=== PATIENT | female | born 1990 | race African-American/Black ===

== ENCOUNTER 2017-01-27 17:24 | Emergency (ER) | payer OTHER ==
[~2017-01-27] VITALS: Ht 152.4 cm; Wt 81.6 kg
[~2017-01-27 17:24] MED LIST: FIORICET 50-301 EACH PO; REGLAN10 M1 PO
[2017-01-27 18:00] LABS: ABSOLUTE BASOPHIL COUNT 0 /CUMM (0.0-0.2); ABSOLUTE EOSINOPHIL COUNT 0.2 /CUMM (0.0-0.7); ABSOLUTE GRANULOCYTE CT 5.1 /CUMM (1.4-6.5); ABSOLUTE LYMPH COUNT 2.1 /CUMM (1.2-3.4); ABSOLUTE MONOCYTE COUNT 0.5 /CUMM (0.10-0.60); BASOPHIL % 0.2 % (0.0-2.0); EOSINOPHIL % 2.2 % (0-5); HEMATOCRIT 35.5 % (37-47); MEAN CORPUSCULAR HGB 21.6 PG (27.0-31.0); MEAN CORPUSCULAR HGB CONC 30.9 G/DL (33.0-37.0); MEAN CORPUSCULAR VOLUME 69.8 FL (81.0-99.0); MEAN PLATELET VOLUME 8.6 FL (7.4-10.4); PLATELET COUNT 331 /CUMM (130-400); RBC DISTRIBUTION WIDTH 15.9 % (11.5-14.5); RED BLOOD CELL CT 5.09 /CUMM (4.20-5.40); WHITE BLOOD CELL COUNT 7.8 /CUMM (4.8-10.8)
--- NOTE | 2017-01-27 19:00 | ED GI/GU/ABDOMINAL COMPLAINT ---
History of Present Illness General Chief Complaint: Abdominal Pain/Flank Pain Stated Complaint: ABD PAIN, ? Source: patient, old records Exam Limitations: no limitations Vital Signs & Intake/Output Vital Signs & Intake/Output Vital Signs Date Time Temp Pulse Resp B/P B/P Pulse O2 O2 Flow FiO2 Mean Ox Delivery Rate 01/27 2100 70 20 118/74 98 Room Air 01/27 1920 98.0 78 20 126/68 06/ 1735 98.6 76 18 140/84 98 Room Air ED Intake and Output 01/28 0000 01/27 1200 Intake Total 1000 Output Total Balance 1000 Intake, IV 1000 Patient 180 lb Weight Weight Reported by Patient Measurement Method Allergies Uncoded Allergies: TOMATOES (Mild, RASH 08/16/13) Reconcile Medications Butalb/Acetaminophen/Caffeine (Fioricet 50-300-40 MG Capsule) 1 EACH CAPSULE 1 -2 TAB PO Q6H PRN HEADACHE Metoclopramide HCl (Reglan) 10 MG TABLET 1 TAB PO Q6-8 PRN nausea/headache Oxycodone HCl/Acetaminophen (Percocet 5-325 MG Tablet) 5 MG-325 MG TABLET 1-2 TAB PO Q6P PRN PAIN Triage Note: 26 YO FEMLAE TO TRIAGE C/O LOWER ABD PRESSURE AND PRESSURE IN BOTTOCKS AND LOW BACK. STATES LMP WAS 2 WEEKS AGO. STATES SHE WENT TO THE BATHROOM THIS AM AND IT LOOKED LIKE A "MUCOUS PLUG" COMING OUT. STATES SHE HAS 2 KIDS "SO I KNOW WHAT IT LOOKS LIKE" STATES PRESSURE IS CONSTANT. DENIES NVD. DENIES URIANRY S/S. Triage Nurses Notes Reviewed? yes ? N Is pt currently ? No HPI: Patient presents to the emergency room with pelvic pressure sensation since yesterday. The pressure is constant. There is no radiation. There are no aggravating or mitigating factors. There is no dysuria or hematuria. There is no nausea or vomiting. She rates the pressure at 5 out of 10. Past History Travel History Traveled to [place] past 21 day No Medical History Any Pertinent Medical History? see below for history Neurological: NONE EENT: NONE Cardiovascular: hypertension Respiratory: NONE Gastrointestinal: NONE Hepatic: NONE Renal: NONE Musculoskeletal: NONE Psychiatric: NONE Endocrine: NONE Blood Disorders: NONE Cancer(s): NONE RETAIL EVENT ASSISTANT/Reproductive: OVARIAN CYSTS Tetanus Vaccine: 10/17/11 Surgical History Surgical History: OVARIAN CYST SURGERY Psychosocial History What is your primary language Turkish Tobacco Use: Current Daily Use Daily Tobacco Use Amount/Type: => 5 Cigarettes daily ETOH Use: denies use Illicit Drug Use: denies illicit drug use Family History Hx Contributory? No Review of Systems Review of Systems Constitutional: Reports: no symptoms. EENTM: Reports: no symptoms. Respiratory: Reports: no symptoms. Cardiovascular: Reports: no symptoms. GI: Reports: see HPI. Genitourinary: Reports: no symptoms. Musculoskeletal: Reports: no symptoms. Skin: Reports: no symptoms. Neurological/Psychological: Reports: no symptoms. Hematologic/Endocrine: Reports: no symptoms. Immunologic/Allergic: Reports: no symptoms. All Other Systems: Reviewed and Negative Physical Exam Physical Exam General Appearance: well developed/nourished, alert, awake, anxious, mild distress Head: atraumatic, normal appearance Eyes: Bilateral: PERRL, EOMI. Ears, Nose, Throat, Mouth: hearing grossly normal, moist mucous membrane Neck: normal inspection, supple, full range of motion Respiratory: normal breath sounds, chest non-tender, no respiratory distress, lungs clear Cardiovascular: regular rate/rhythm, normal peripheral pulses Gastrointestinal: normal bowel sounds, soft, non-tender, no organomegaly Back: normal inspection, normal range of motion Extremities: normal range of motion Neurologic/Psych: no motor/sensory deficits, awake, alert, oriented x 3, normal mood/affect Skin: normal color, warm/dry Core Measures ACS in differential dx? No Severe Sepsis Present: No Septic Shock Present: No Progress Differential Diagnosis: appendicitis, ectopic , endometritis, ischemic bowel, inflamm bowel dis, intrauterine , kidney stone, ovarian cyst, ovarian torsion, pancreatitis, PID/cervicitis, threatened AB, UTI/pyelo Plan of Care: Orders Procedure Date/time Status HUMAN BETA HCG SCREEN 01/27 1745 Complete URINE 01/27 1737 Complete URINALYSIS 01/27 1737 Complete COMPREHENSIVE METABOLIC PANEL 01/27 1737 Complete CBC WITHOUT DIFFERENTIAL 01/27 1737 Complete Laboratory Tests 01/27/171744: Anion Gap 10, Estimated GFR > 60, BUN/Creatinine Ratio 13.8, Glucose 100 H, Calcium 8.9, Total Bilirubin 0.3, AST 19, ALT 30, Alkaline Phosphatase 50, Total Protein 7.2, Albumin 4.2, Globulin 3.0, Albumin/Globulin Ratio 1.4, Total Beta HCG NEGATIVE, CBC w Diff NO MAN DIFF REQ, RBC 5.09, MCV 69.8 L, MCH 21.6 L, RDW 15.9 H, MPV 8.6, Gran % 65.0, Lymphocytes % 26.7, Monocytes % 5.9, Eosinophils % 2.2, Basophils % 0.2, Absolute Granulocytes 5.1, Absolute Lymphocytes 2.1, Absolute Monocytes 0.5, Absolute Eosinophils 0.2, Absolute Basophils 0, PUBS MCHC 30.9 L 01/27/17 1743: Urine Color YEL, Urine Clarity CLEAR, Urine pH 6.5, Ur Specific Sunol 1.020, Urine Protein TRACE H, Urine Ketones TRACE H, Urine Nitrite NEG, Urine Bilirubin NEG, Urine Urobilinogen 1.0, Ur Leukocyte Esterase NEG, Ur Microscopic SEDIMENT EXAMINED, Urine RBC 1-3, Urine WBC RARE, Ur Epithelial Cells MOD H, Urine Bacteria MOD H, Urine Mucus MANY H, Urine Hemoglobin TRACE-INTACT, Urine Glucose NEG, Urine Test NEGATIVE 01/27/17 173: Total Beta HCG Cancelled Diagnostic Imaging: Viewed by Me: Ultrasound. Discussed w/RAD: Ultrasound. Radiology Impression: PATIENT: CLARA MORALEZ PRESENT AGE: 26 PATIENT ACCOUNT NO: [id number] : 90 LOCATION: [facility] ORDERING PHYSICIAN: KACY DELEON MD SERVICE DATE: 01/27/17 EXAM TYPE: US - US-TRANSVAGINAL EXAMINATION: ULTRASOUND PELVIS COMPLETE CLINICAL INFORMATION: Left adnexal and suprapubic pain. Evaluate for ovarian torsion. COMPARISON: None. TECHNIQUE: Real-time sonographic imaging of the uterus and bilateral adnexa via transabdominal and transvaginal approach. FINDINGS: The uterus is anteverted and measures 9.0 x 4.2 x 4.6 cm in sagittal, AP and transverse dimensions respectively, corresponding to a volume of 92.1 mL. The cervical length is 2.9 cm. The endometrial stripe measures 0.2 cm in thickness. There is a minimal amount of fluid within the endometrial canal. The bilateral ovaries appear unremarkable. The right ovary measures 3.5 x 2.0 x 2.5 cm, corresponding to a volume of 9.5 mL. The left ovary measures 2.8 x 2.4 x 2.6 cm, corresponding to a volume of 9.1 mL. Flow is demonstrated within the bilateral ovaries. No significant free pelvic fluid. IMPRESSION: No sonographic findings indicative of ovarian torsion. Flow was demonstrated within the bilateral ovaries. Minimal fluid is identified within the endometrial canal. DICTATED BY: VIKKI VICTOR MD DATE/TIME DICTATED:01/27/172011 SUMO WRESTLER:YUE DATE/TIME TRANSCRIBED:01/27/172011 CONFIDENTIAL, DO NOT COPY WITHOUT APPROPRIATE AUTHORIZATION. <Electronically signed in Other Vendor System> SIGNED BY: VIKKI VICTOR MD 01/27/172017, PATIENT: CLARA MORALEZ PRESENT AGE: 26 PATIENT ACCOUNT NO: [id number] : 90 LOCATION: [facility] ORDERING PHYSICIAN: KACY DELEON MD SERVICE DATE: -2022 EXAM TYPE: CAT - CT ABD & PELVIS W/O IV CONTRAS EXAMINATION: CT ABDOMEN AND PELVIS WITHOUT CONTRAST CLINICAL INFORMATION: Back pain. Pelvic pain. Kidney stone. COMPARISON: None. TECHNIQUE: Multidetector volumetric imaging was performed from the lung bases through the pubic symphysis. Sagittal and coronal reformatted images were obtained on the technologist workstation. Total exam dose-length product 489 mGy-cm FINDINGS: The lack of intravenous contrast limits evaluation of the solid visceral organs including the liver, spleen, pancreas, and kidneys. LUNG BASES: The visualized lung bases are unremarkable. LIVER, GALLBLADDER, AND BILIARY TREE: Limited non-contrast evaluation is normal. No gross focal hepatic lesion. Normal liver size and contour. No gross biliary ductal dilation. The gallbladder is unremarkable with no evidence of radiopaque gallstones, gallbladder wall thickening, or obvious pericholecystic inflammatory changes. PANCREAS: Limited non-contrast evaluation is normal. No brielle- pancreatic fluid. SPLEEN: Limited non-contrast evaluation is normal. ADRENAL GLANDS: Normal; no adrenal mass. KIDNEYS AND URETERS: Limited non-contrast evaluation is normal. No hydronephrosis, hydroureter, or calculi seen. No perinephric stranding. There is a right pelvic phlebolith. GASTROINTESTINAL TRACT: Small bowel and colon are non-dilated. No bowel wall thickening. No pericolonic inflammatory changes to suggest colitis or diverticulitis. Normal appendix. ABDOMINAL WALL: Tiny fat-containing umbilical hernia. LYMPH NODES: No pathologically enlarged lymph nodes in the abdomen or pelvis. VASCULAR: Normal caliber abdominal aorta. BLADDER: The urinary bladder is only mildly distended with circumferential wall thickening likely due to underdistention. PELVIC VISCERA: Normal CT appearance of the uterus. No adnexal mass seen. OSSEOUS STRUCTURES: No acute or suspicious osseous abnormalities. IMPRESSION: No radiopaque urolithiasis. No evidence of obstructive uropathy. No CT findings to explain the patient's symptoms. DICTATED BY: HARPER BETANCUR MD DATE/TIME DICTATED:01/27/172058 SUMO WRESTLER:YUE DATE/TIME TRANSCRIBED:2058 CONFIDENTIAL, DO NOT COPY WITHOUT APPROPRIATE AUTHORIZATION. < Electronically signed in Other Vendor System> SIGNED BY: HARPER BETANCUR MD 01/27/172105 Initial ED EKG: none Departure Departure Disposition: HOME OR SELF CARE Condition: Stable Clinical Impression Primary Impression: Pelvic pain Referrals: YURY LEVY (PCP/Family) Additional Instructions: FOLLOW UP WITH YOUR GYNOCOLOGIST RETURN FOR ANY CONCERNS Departure Forms: Customer Survey General Discharge Information Prescriptions: Current Visit Scripts Oxycodone HCl/Acetaminophen (Percocet 5-325 MG Tablet) 1-2 TAB PO Q6P PRN PAIN #20 TAB
--- NOTE | 2017-01-27 20:18 | ULTRASOUND REPORT ---
EXAMINATION: ULTRASOUND PELVIS COMPLETE CLINICAL INFORMATION: Left adnexal and suprapubic pain. Evaluate for ovarian torsion. COMPARISON: None. TECHNIQUE: Real-time sonographic imaging of the uterus and bilateral adnexa via transabdominal and transvaginal approach. FINDINGS: The uterus is anteverted and measures 9.0 x 4.2 x 4.6 cm in sagittal, AP and transverse dimensions respectively, corresponding to a volume of 92.1 mL. The cervical length is 2.9 cm. The endometrial stripe measures 0.2 cm in thickness. There is a minimal amount of fluid within the endometrial canal. The bilateral ovaries appear unremarkable. The right ovary measures 3.5 x 2.0 x 2.5 cm, corresponding to a volume of 9.5 mL. The left ovary measures 2.8 x 2.4 x 2.6 cm, corresponding to a volume of 9.1 mL. Flow is demonstrated within the bilateral ovaries. No significant free pelvic fluid. IMPRESSION: No sonographic findings indicative of ovarian torsion. Flow was demonstrated within the bilateral ovaries. Minimal fluid is identified within the endometrial canal.
[2017-01-27 21:00] VITALS: BP 118/74
--- NOTE | 2017-01-27 21:06 | CT SCAN REPORT ---
EXAMINATION: CT ABDOMEN AND PELVIS WITHOUT CONTRAST CLINICAL INFORMATION: Back pain. Pelvic pain. Kidney stone. COMPARISON: None. TECHNIQUE: Multidetector volumetric imaging was performed from the lung bases through the pubic symphysis. Sagittal and coronal reformatted images were obtained on the technologist workstation. Total exam dose-length product 489 mGy-cm FINDINGS: The lack of intravenous contrast limits evaluation of the solid visceral organs including the liver, spleen, pancreas, and kidneys. LUNG BASES: The visualized lung bases are unremarkable. LIVER, GALLBLADDER, AND BILIARY TREE: Limited non-contrast evaluation is normal. No gross focal hepatic lesion. Normal liver size and contour. No gross biliary ductal dilation. The gallbladder is unremarkable with no evidence of radiopaque gallstones, gallbladder wall thickening, or obvious pericholecystic inflammatory changes. PANCREAS: Limited non-contrast evaluation is normal. No brielle-pancreatic fluid. SPLEEN: Limited non-contrast evaluation is normal. ADRENAL GLANDS: Normal; no adrenal mass. KIDNEYS AND URETERS: Limited non-contrast evaluation is normal. No hydronephrosis, hydroureter, or calculi seen. No perinephric stranding. There is a right pelvic phlebolith. GASTROINTESTINAL TRACT: Small bowel and colon are non-dilated. No bowel wall thickening. No pericolonic inflammatory changes to suggest colitis or diverticulitis. Normal appendix. ABDOMINAL WALL: Tiny fat-containing umbilical hernia. LYMPH NODES: No pathologically enlarged lymph nodes in the abdomen or pelvis. VASCULAR: Normal caliber abdominal aorta. BLADDER: The urinary bladder is only mildly distended with circumferential wall thickening likely due to underdistention. PELVIC VISCERA: Normal CT appearance of the uterus. No adnexal mass seen. OSSEOUS STRUCTURES: No acute or suspicious osseous abnormalities. IMPRESSION: No radiopaque urolithiasis. No evidence of obstructive uropathy. No CT findings to explain the patient's symptoms.
[2017-01-27] MEDS ORDERED: PERCOCET 5-3251 EACH PO (21:24)
== END 2017-01-27 21:36 ==
LOC: ERH 17:24
PROVIDERS: Emergency Medicine
DX: R10.2 Pelvic and perineal pain (principal)
CPT/HCPCS: 74176; 81001; 81025; 96374; 96375; J1885; J2405

== ENCOUNTER 2018-02-24 14:18 | Emergency (ER) | payer OTHER ==
[~2018-02-24] VITALS: Ht 154.9 cm; Wt 81.6 kg
[~2018-02-24 14:18] MED LIST changes: +CHERATUSSIN AC118 M1 PO; +DOXYCYCLINE HY100 M4 PO; +PERCOCET 5-3251 EACH PO; +ZOFRAN ODT4 M1 SL
[2018-02-24 14:22] VITALS: BP 147/69
[2018-02-24] MEDS ORDERED: TRIAMCINOLONE A15 G2 TOP (15:27)
[2018-02-24] MEDS ORDERED: CLOTRIMAZOLE15 GM TOP (15:27)
--- NOTE | 2018-02-24 15:28 | ED SKIN/ALLERGY COMPLAINT ---
History of Present Illness General Chief Complaint: Skin Rash/ Abcess Stated Complaint: "HEAT RASH" Source: patient Exam Limitations: no limitations Vital Signs & Intake/Output Vital Signs & Intake/Output Vital Signs Date Time Temp Pulse Resp B/P B/P Pulse O2 O2 Flow FiO2 Mean Ox Delivery Rate 02/24 1530 Room Air 02/24 1422 72.0 84 18 147/69 98 Room Air Room Air Allergies Coded Allergies: tomato (RASH 07/31/17) Reconcile Medications Clotrimazole 1 % CREAM..G. 1 SANGITA TOP QAMPM remi apply to affected area(s) Codeine Phosphate/Guaifenesi (Cheratussin AC Syrup) 10 MG-100 MG/5 ML LIQUID 10 ML PO Q6H PRN COUGH Doxycycline Hyclate 100 MG TABLET 1 TAB PO BID BRONCITIS Ondansetron (Zofran Odt) 4 MG TAB.RAPDIS 1 TAB SL TID PRN NAUSEA Triamcinolone Acetonide 0.5 % CREAM..G. 1 SANGITA TOP BID rash apply to affected area(s) Triage Note: PT TO ED WITH C/O RASH UNDER BILATERAL BREASTS "HEAT RASH". Triage Nurses Notes Reviewed? yes Onset: Abrupt Duration: day(s): Timing: recent history Severity: moderate, severe : No Patient currently breastfeeds: No HPI: 27-year-old female comes into the emergency room for further evaluation of rash underneath her breasts bilaterally. Itching. Painful. She reports that she's been sweating an excessive amount. It's been very hot outside. (Rajan Goldstein) Past History Travel History Traveled to [place] past 21 day No Medical History Any Pertinent Medical History? see below for history Neurological: NONE EENT: NONE Cardiovascular: NONE Respiratory: asthma Gastrointestinal: NONE Hepatic: NONE Renal: NONE Musculoskeletal: NONE Psychiatric: NONE Endocrine: NONE Blood Disorders: NONE Cancer(s): NONE DRYWALL TAPER/Reproductive: OVARIAN CYSTS Tetanus Vaccine: 10/17/11 Surgical History Surgical History: OVARIAN CYST SURGERY Psychosocial History What is your primary language Nepali Tobacco Use: Current Daily Use Daily Tobacco Use Amount/Type: =< 4 Cigarettes daily ETOH Use: denies use Illicit Drug Use: denies illicit drug use Family History Hx Contributory? No (Rajan Goldstein) Review of Systems Review of Systems Constitutional: Reports: no symptoms. EENTM: Reports: no symptoms. Respiratory: Reports: no symptoms. Cardiovascular: Reports: no symptoms. GI: Reports: no symptoms. Genitourinary: Reports: no symptoms. Musculoskeletal: Reports: no symptoms. Skin: Reports: see HPI. Neurological/Psychological: Reports: no symptoms. Hematologic/Endocrine: Reports: no symptoms. Immunologic/Allergic: Reports: no symptoms. All Other Systems: Reviewed and Negative (Rajan Goldstein) Physical Exam Physical Exam General Appearance: well developed/nourished, mild distress Head: atraumatic Eyes: Bilateral: normal appearance. Ears, Nose, Throat: normal ENT inspection, hearing grossly normal Neck: normal inspection Respiratory: no respiratory distress Back: normal inspection Extremities: normal inspection, normal range of motion, no edema Neurologic/Psych: awake, alert, oriented x 3, normal mood/affect Skin: intact, rash Skin Problem Location: torso Skin Problem Character: Erythema, patchy (Rajan Goldstein) Progress Differential Diagnosis: abscess/cellulitis, allergic reaction, anaphylaxis, contact dermatitis, heat rash, candidiasis Plan of Care: 02/24/2018 3:49:21 PM Rashes most consistent with either heat rash or fungal infection. Patient treated with medications. Follow-up with primary care doctor. Return if any other concerns. She clinically looks well. Keep areas dry as possible. (Rajan Goldstein) Departure Departure Disposition: HOME OR SELF CARE Condition: Stable Clinical Impression Primary Impression: Candidiasis of breast Referrals: Salina Smith APRN (PCP/Family) Additional Instructions: Use clotrimazole cream as prescribed. Take triamcinolone cream for your psoriasis. Return if any concerns worsening symptoms. Keep the area under the breasts as dry as possible. Please go over all results of today's visit with your primary care doctor. Contact your primary care doctor to let them know you were here in the emergency room. There may be nonspecific findings which may not be related to your visit today here in the emergency room but may require further evaluation and chronic monitoring by your primary care doctor. If you had a laceration today the chance of foreign body always remains. You should follow-up with your primary care doctor for recheck in 3-5 days for a wound check. If you had an x-ray done there is a chance that a fracture could have been missed on initial read and you should follow-up with your primary care doctor for repeat x-rays if symptoms persist. If your blood pressure was elevated here in the emergency room please have rechecked by hyour primary care doctor within the next 48. If you were prescribed a narcotic here in the emergency room or any type of controlled substances you're not allowed to drive while taking this medication or operate any type of heavy machinery. Narcotics can make you feel lightheaded dizziness nausea and can cause constipation. You may need to moss picker a stool softener. Thank you for choosing [facility] emergency room. Please return to the emergency room immediately if you have any other concerns worsening of symptoms. Departure Forms: Customer Survey General Discharge Information Prescriptions: Current Visit Scripts Clotrimazole 1 SANGITA TOP QAMPM #45 GM apply to affected area(s) Triamcinolone Acetonide 1 SANGITA TOP BID #15 GM apply to affected area(s) (Rajan Goldstein) PA/DATA REPORT ANALYST Co-Sign Statement Statement: ED Attending supervision documentation- I saw and evaluated the patient. I have also reviewed all the pertinent lab results and diagnostic results. I agree with the findings and the plan of care as documented in the PA's/DATA REPORT ANALYST's documentation. x I have reviewed the ED Record and agree with the PA's/DATA REPORT ANALYST's documentation. [] Additions or exceptions (if any) to the PAs/DATA REPORT ANALYST's note and plan are summarized below: [] (Kitty SANTOS,Owen)
== END 2018-02-24 15:31 ==
LOC: ERH 14:18
DX: B37.2 Candidiasis of skin and nail (principal)